=== PATIENT | male | born 1995 | race Caucasian/White ===

== ENCOUNTER 2017-01-29 10:37 | Inpatient (IN) | payer OTHER ==
--- NOTE | 2017-01-29 10:54 | ED ---
Medical Clearance HPI - General Stated complaint: mental health Time Seen by Provider: 01/29/17 10:40 Source: RN notes reviewed - History of Present Illness Initial comments: 21-year-old male who presents emergency Department complaining of feeling as always been more manic. Patient states that difficulty sleeping and had racing thoughts . Patient denies any suicidal or homicidal ideations. Patient states she was diagnosed with bipolar in the past but never took any medications for because he didn't get around to getting them. Patient denies any physical complaints. Patient denies any chest pain difficulty breathing shortness of breath. Patient denies any abdominal pain patient denies nausea vomiting diarrhea. Patient denies any recent fever or chills per patient denies headache. Home medications: Home Medications Medication Instructions Recorded Confirmed No Known Home Medications [No 01/29/17 01/29/17 Known Home Medications] Allergies/Adverse reactions: Allergies Allergy/AdvReac Type Severity Reaction Status Date / Time No Known Allergies Allergy Verified 01/29/17 12:12 Review of Systems ROS Statement: Those systems with pertinent positive or pertinent negative responses have been documented in the HPI. ROS Other: All systems not noted in ROS Statement are negative. General Exam - General Exam Comments Initial Comments: GENERAL: Patient is well-developed and well-nourished. Patient is nontoxic and well- hydrated and is in no acute distress. ENT: Neck is soft and supple. No significant lymphadenopathy is noted. EYES: The sclera were anicteric and conjunctiva were pink and moist. Extraocular movements were intact and pupils were equal round and reactive to light. Eyelids were unremarkable. PULMONARY: Unlabored respirations. Good breath sounds bilaterally. No audible rales rhonchi or wheezing was noted. CARDIOVASCULAR: There is a regular rate and rhythm without any murmurs gallops or rubs. ABDOMEN: Soft and nontender with normal bowel sounds. SKIN: Skin is clear with no lesions or rashes and otherwise unremarkable. NEUROLOGIC: Patient is alert and oriented x3. Cranial nerves II through XII are grossly intact. Motor and sensory are also intact. Normal speech, volume and content. Symmetrical smile. MUSCULOSKELETAL: Normal extremities with adequate strength and full range of motion. No lower extremity swelling or edema. No calf tenderness. PSYCHIATRIC: Patient states he has racing thoughts and some mild paranoia occasionally especially when he hasn't slept for a while. Patient states he has had quite a bit of difficulty sleeping lately. Course Vital Signs 01/29/17 01/29/17 10:50 12:14 Temperature 97.9 F 98.9 F Pulse Rate 119 H 98 Respiratory 20 20 Rate Blood Pressure 157/71 149/85 O2 Sat by Pulse 96 96 Oximetry Medical Decision Making - Medical Decision Making When the parents showed up they were indicating to us that the patient was extremely paranoid even to the degree that he was afraid of drinking any water because he thought it might harm him. Patient eventually admitted to this. Parents filled out a petition on the patient and I filled out a clinical certification for the patient needed to be transferred to a psychiatric facility - Lab Data Result diagrams: 01/29/17 12:30 01/29/17 12:30 Lab Results 01/29/17 01/29/17 Range/Units 12:30 12:30 WBC 8.0 (3.8-10.6) k/uL RBC 5.18 (4.30-5.90) m/uL Hgb 16.1 (13.0-17.5) gm/dL Hct 46.7 (39.0-53.0) % MCV 90.1 (80.0-100.0) fL MCH 31.0 (25.0-35.0) pg MCHC 34.4 (31.0-37.0) g/dL RDW 12.9 (11.5-15.5) % Plt Count 217 (150-450) k/uL Neutrophils % 67 % Lymphocytes % 22 % Monocytes % 8 % Eosinophils % 0 % Basophils % 1 % Neutrophils # 5.4 (1.3-7.7) k/uL Lymphocytes # 1.8 (1.0-4.8) k/uL Monocytes # 0.7 (0-1.0) k/uL Eosinophils # 0.0 (0-0.7) k/uL Basophils # 0.1 (0-0.2) k/uL Sodium 141 (137-145) mmol/L Potassium 3.5 (3.5-5.1) mmol/L Chloride 106 (98-107) mmol/L Carbon Dioxide 24 (22-30) mmol/L Anion Gap 11 mmol/L BUN 8 L (9-20) mg/dL Creatinine 0.80 (0.66-1.25) mg/dL Est GFR (MDRD) Af Amer >60 (>60 ml/min/1.73 sqM) Est GFR (MDRD) Non-Af >60 (>60 ml/min/1.73 sqM) Glucose 94 (74-99) mg/dL Calcium 10.2 (8.4-10.2) mg/dL Total Bilirubin 0.9 (0.2-1.3) mg/dL AST 29 (17-59) U/L ALT 35 (21-72) U/L Alkaline Phosphatase 45 (38-126) U/L Total Protein 7.8 (6.3-8.2) g/dL Albumin 4.9 (3.5-5.0) g/dL Disposition Clinical Impression: Psychosis Disposition: TRANSFER TO PSYCH HOSP/UNIT Time of Disposition: 14:27
[2017-01-29 12:47] LABS: Basophils # (A) 0.1 k/uL (0-0.2); Basophils % (A) 1 %; CH 31.7; CHCM 35.4; Eosinophils % (A) 0 %; HCT 46.7 % (39.0-53.0); HDW 2.51; HGB 16.1 gm/dL (13.0-17.5); Luc % (Auto) 1; Lymphocytes # (A) 1.8 k/uL (1.0-4.8); Lymphocytes % (A) 22 %; MCHC 34.4 g/dL (31.0-37.0); MCV 90.1 fL (80.0-100.0); Mean Platelet Volume 7.4; Monocytes # (A) 0.7 k/uL (0-1.0); Monocytes % (A) 8 %; Neutrophils # (A) 5.4 k/uL (1.3-7.7); Neutrophils % (A) 67 %; RBC 5.18 m/uL (4.30-5.90); RDW 12.9 % (11.5-15.5); WBC (Perox) 7.75
[2017-01-29 12:53] LABS: ALT 35 U/L (21-72); AST 29 U/L (17-59); Alkaline Phosphatase 45 U/L (38-126); Anion Gap 11 mmol/L; Blood Urea Nitrogen 8 mg/dL (9-20); Calcium 10.2 mg/dL (8.4-10.2); Carbon Dioxide 24 mmol/L (22-30); Chloride 106 mmol/L (98-107); Glucose 94 mg/dL (74-99); Non-African American GFR(MDRD) >60 (>60 ml/min/1.73 sqM); Potassium 3.5 mmol/L (3.5-5.1); Sodium 141 mmol/L (137-145); Total Bilirubin 0.9 mg/dL (0.2-1.3); Total Protein 7.8 g/dL (6.3-8.2)
[2017-01-29] MEDS ORDERED: MAG HYDROX/AL HYDROX/SIMETH 30 ML CUP PO PRN (18:24)
[2017-01-29] MEDS ORDERED: ACETAMINOPHEN TAB 325 MG TAB PO PRN (18:24)
[2017-01-29] MEDS ORDERED: MAGNESIUM HYDROXIDE 2,400 MG/10 ML CUP PO PRN (18:24)
[2017-01-29] MEDS ORDERED: ZIPRASIDONE 20 MG VIAL IM PRN (18:24)
[2017-01-29] MEDS ORDERED: LORazepam 2 MG/ML SYRINGE IM PRN (18:27)
[2017-01-29 18:40] LABS: Appearance,Urine Cloudy (Clear); Bacteria,Urine Rare /hpf; Bilirubin,Urine Negative (Negative); Calcium Oxalate Crystals,Urine Moderate /hpf; Glucose,Urine (UA) Negative (Negative); Ketones,Urine 2+ (Negative); Leukocyte Esterase,Urine Negative (Negative); Mucus,Urine Many /hpf; Nitrite,Urine Negative (Negative); Particle Count 14715; Protein,Urine 1+ (Negative); RBC,Urine 6 /hpf (0-5); Specific Gravity,Urine 1.028 (1.001-1.035); Squamous Epithelial Cell,Urine <1 /hpf (0-4); UA Billing (MACRO vs. MICRO) MICRO; WBC,Urine 1 /hpf (0-5)
[2017-01-29] MEDS: LORazepam 1 MG TAB PO PRN (19:11)
[2017-01-30] MEDS: LORazepam 1 MG TAB PO PRN (08:26)
--- NOTE | 2017-01-30 13:44 | P.HP ---
Psychiatric H&P - . H&P Date: 01/30/17 History & Physical: IDENTIFYING DATA: 21 year old single male HPI: Pt reports he smokes cannabis and about 2 weeks ago he began to become fearful of eating or drinking, thinking that people were looking at him, had other conspiracy type thoughts. Not sleeping for about a week. Continue to smoke cannabis until 2 weeks ago. Family brought [facility] and petitioned him, the first cert completed in ER. Once on the floor he signed a AVF. He reports he is feeling much better now, thinks that the cannabis was laced with crystal meth, since his UDS was postive, and he denies any use of methamphetamines. He states he bought this at the dispensary. He states he is eating and drinking normally, sleep is good. PAST PSYCHIATRIC HISTORY: Saw a psychiatrist 3 years ago and was diagnosed with bipolar,, outpatient. Says he tried to get medication but could not, and then thought since his symptoms were diminished he no longer needed medication. Never hospitalized Denies suicidal attempts. +suicidal ideation as a youngster. PMH:denies ALLERGIES: no known ALLERGIES MEDICATIONS: none until here and receiving ativan CHEMICAL DEPENDENCY HISTORY: cannabis, etoh occasional FAMILY PSYCHIATRIC HISTORY: Father has Bipolar, DO. Denies family history of suicide FAMILY CHEMICAL DEPENDENCY HISTORY: Father has substance use, etoh SOCIAL HISTORY: Engaged, lives by himself, he works odd jobs, [employer]. MENTAL STATUS EXAM: The patient presents alert, pleasant, and cooperative. Calmly seated without any agitated behavior. He reports that his mood is good. Affect is constricted. Patient denies having any suicidal or homicidal ideation intent or plan. Denies auditory or visual hallucinations. There is no evidence of any delusional thought content. His thought process is linear and goal-directed. speech is fluent and nonpressured. memory and concentration is grossly intact for the purposes of this session. ] STRENGTHS/WEAKNESSES: intelligent/poor insight INTELLECTUAL FUNCTIONING: average IMPRESSIONS: [21-year-old single male engaged with a two-week history suggestive of froy and a past history of bipolar disorder being made 3 years ago but no medication. Patient believes that this was caused by a methamphetamine laced marijuana that he bought. He appears to be very self- controlled, with report of a good mood but constricted affect. He stopped smoking marijuana approximately 2 weeks ago that still when he came in he was still having the paranoia the delusions and he still had positive UDS, so unclear about the timeline. No clear psychosis or delusions today. No suicidal or homicidal ideation Bipolar Disorder, MRE, manic with psychosis Cannabis use, severe Methamphetamine use, mild PLAN: Discussed treatment options, explain the medication that he is on right now Ativan, is addicting and we really should not To his problem last. He is open to trying a medication for bipolar disorder. We discussed different medications, and although it is unclear that this episode of froy and psychosis was not due to the influence of stimulants and since he has a past episode where he was diagnosed with bipolar, we agreed that we would start Abilify 2.5mg today D/C Ativan Vistaril 25 mg when necessary 3 times a day for anxiety A family meeting should be arranged as soon as possible to gather more information and possible symptoms that she is unaware of. He also agreed to not smoke cannabis in the future Continue inpatient psychiatric hospitalization for safety, observation, and medication management. Allergies Allergy/AdvReac Type Severity Reaction Status Date / Time No Known Allergies Allergy Verified 01/29/17 12:12 Vital Signs Temp 98.1 F 01/30/17 06:52 Pulse 145 H 01/30/17 08:27 Resp 16 01/30/17 08:27 BP 144/83 01/30/17 08:27 Pulse Ox 99 01/29/17 18:24 Laboratory Last Values WBC 8.0 k/uL (3.8-10.6) 01/29/17 12:30 RBC 5.18 m/uL (4.30-5.90) 01/29/17 12:30 Hgb 16.1 gm/dL (13.0-17.5) 01/29/17 12:30 Hct 46.7 % (39.0-53.0) 01/29/17 12:30 MCV 90.1 fL (80.0-100.0) 01/29/17 12:30 MCH 31.0 pg (25.0-35.0) 01/29/17 12:30 MCHC 34.4 g/dL (31.0-37.0) 01/29/17 12:30 RDW 12.9 % (11.5-15.5) 01/29/17 12:30 Plt Count 217 k/uL (150-450) 01/29/17 12:30 Neutrophils % 67 % 01/29/17 12:30 Lymphocytes % 22 % 01/29/17 12:30 Monocytes % 8 % 01/29/17 12:30 Eosinophils % 0 % 01/29/17 12:30 Basophils % 1 % 01/29/17 12:30 Neutrophils # 5.4 k/uL (1.3-7.7) 01/29/17 12:30 Lymphocytes # 1.8 k/uL (1.0-4.8) 01/29/17 12:30 Monocytes # 0.7 k/uL (0-1.0) 01/29/17 12:30 Eosinophils # 0.0 k/uL (0-0.7) 01/29/17 12:30 Basophils # 0.1 k/uL (0-0.2) 01/29/17 12:30 Sodium 141 mmol/L (137-145) 01/29/17 12:30 Potassium 3.5 mmol/L (3.5-5.1) 01/29/17 12:30 Chloride 106 mmol/L (98-107) 01/29/17 12:30 Carbon Dioxide 24 mmol/L (22-30) 01/29/17 12:30 Anion Gap 11 mmol/L 01/29/17 12:30 BUN 8 mg/dL (9-20) L 01/29/17 12:30 Creatinine 0.80 mg/dL (0.66-1.25) 01/29/17 12:30 Est GFR (MDRD) Af Amer >60 (>60 ml/min/1.73 sqM) 01/29/17 12:30 Est GFR (MDRD) Non-Af >60 (>60 ml/min/1.73 sqM) 01/29/17 12:30 Glucose 94 mg/dL (74-99) 01/29/17 12:30 Calcium 10.2 mg/dL (8.4-10.2) 01/29/17 12:30 Total Bilirubin 0.9 mg/dL (0.2-1.3) 01/29/17 12:30 AST 29 U/L (17-59) 01/29/17 12:30 ALT 35 U/L (21-72) 01/29/17 12:30 Alkaline Phosphatase 45 U/L (38-126) 01/29/17 12:30 Total Protein 7.8 g/dL (6.3-8.2) 01/29/17 12:30 Albumin 4.9 g/dL (3.5-5.0) 01/29/17 12:30 TSH 1.010 mIU/L (0.465-4.680) 01/29/17 12:34 Urine Color Yellow 01/29/17 14:40 Urine Appearance Cloudy (Clear) 01/29/17 14:40 Urine pH 6.0 (5.0-8.0) 01/29/17 14:40 Ur Specific [place] 1.028 (1.001-1.035) 01/29/17 14:40 Urine Protein 1+ (Negative) H 01/29/17 14:40 Urine Glucose (UA) Negative (Negative) 01/29/17 14:40 Urine Ketones 2+ (Negative) H 01/29/17 14:40 Urine Blood Negative (Negative) 01/29/17 14:40 Urine Nitrite Negative (Negative) 01/29/17 14:40 Urine Bilirubin Negative (Negative) 01/29/17 14:40 Urine Urobilinogen 2.0 mg/dL (<2.0) 01/29/17 14:40 Ur Leukocyte Esterase Negative (Negative) 01/29/17 14:40 Urine RBC 6 /hpf (0-5) H 01/29/17 14:40 Urine WBC 1 /hpf (0-5) 01/29/17 14:40 Ur Squamous Epith Cells <1 /hpf (0-4) 01/29/17 14:40 Calcium Oxalate Crystal Moderate /hpf (None) H 01/29/17 14:40 Urine Bacteria Rare /hpf (None) H 01/29/17 14:40 Hyaline Casts 15 /lpf (0-2) H 01/29/17 14:40 Urine Mucus Many /hpf (None) H 01/29/17 14:40 Urine Opiates Screen Not Detected (NotDetected) 01/29/17 14:10 Ur Oxycodone Screen Not Detected (NotDetected) 01/29/17 14:10 Urine Methadone Screen Not Detected (NotDetected) 01/29/17 14:10 Ur Propoxyphene Screen Not Detected (NotDetected) 01/29/17 14:10 Ur Barbiturates Screen Not Detected (NotDetected) 01/29/17 14:10 U Tricyclic Antidepress Not Detected (NotDetected) 01/29/17 14:10 Ur Phencyclidine Scrn Not Detected (NotDetected) 01/29/17 14:10 Ur Amphetamines Screen Not Detected (NotDetected) 01/29/17 14:10 U Methamphetamines Scrn Detected (NotDetected) H 01/29/17 14:10 U Benzodiazepines Scrn Not Detected (NotDetected) 01/29/17 14:10 Urine Cocaine Screen Not Detected (NotDetected) 01/29/17 14:10 U Marijuana (THC) Screen Detected (NotDetected) H 01/29/17 14:10 01/30/17 12:44 01/30/17 13:14 01/30/17 13:44
--- NOTE | 2017-01-30 14:25 | P.CONS ---
History of Present Illness - Reason for Consult Consult date: 01/30/17 Medical management - History of Present Illness This is a 21-year-old male with no primary care physician. He has a past medical history of bipolar disorder, tobacco use and dependence, marijuana use. Patient states that he has been extremely anxious, unable to sleep and recently used marijuana couple weeks ago but stopped using. He states his anxiety just continued to worsen and he came back to [facility] to be with his family as he thought this might help him. They were concerned and scared regarding his behavior. He states he has had extreme behavior with bipolar but it was never like this. Patient came into [facility] emergency center. Urine drug screen was positive for methamphetamines and marijuana. Patient states he has never taken any methamphetamines. Urinalysis showed moderate calcium oxalate crystals. Patient states that he quit smoking cigarettes a couple weeks ago. Review of Systems All systems: negative Constitutional: Denies chills, Denies fever Eyes: denies blurred vision, denies pain Ears, nose, mouth and throat: Denies headache, Denies sore throat Cardiovascular: Denies chest pain, Denies shortness of breath Respiratory: Denies cough Gastrointestinal: Denies abdominal pain, Denies diarrhea, Denies nausea, Denies vomiting Musculoskeletal: Denies myalgias Integumentary: Denies pruritus, Denies rash Neurological: Denies numbness, Denies weakness Psychiatric: Reports anxiety, Reports anxiety attacks, Reports insomnia, Denies depression Endocrine: Denies fatigue, Denies weight change Past Medical History Past Medical History: No Reported History Past Surgical History: No Surgical Hx Reported Past Psychological History: Bipolar Smoking Status: Former smoker Past Alcohol Use History: None Reported Additional Past Alcohol Use History / Comment(s): Patient was a smoker of 4-5 cigarettes per day for 3 years and quit in December 2015. He has recently been smoking marijuana. He is single and does not have any children. Past Drug Use History: None Reported - Past Family History Father Additional Family Medical History / Comment(s): Father is alive at age 41 with history of bipolar disorder. Mother Additional Family Medical History / Comment(s): Mother is alive at age 43 with history of thyroid problems and endometriosis. Sister(s) Additional Family Medical History / Comment(s): He has 5 sisters and 1 brother with no major medical problems. Medications and Allergies Home Medications Medication Instructions Recorded Confirmed Type No Known Home Medications [No 01/29/17 01/29/17 History Known Home Medications] Allergies Allergy/AdvReac Type Severity Reaction Status Date / Time No Known Allergies Allergy Verified 01/29/17 12:12 Physical Exam Vitals: Vital Signs Temp Pulse Pulse Resp BP BP Pulse Ox 01/30/17 08:27 145 H 16 144/83 01/30/17 06:52 98.1 F 93 16 117/65 01/29/17 19:12 127 H 20 134/99 01/29/17 18:24 99.3 F 98 122 H 20 123/83 146/106 98 Gen: This is a 21-year-old male. He appears to be in no acute distress. He is cooperative. HEENT: Head is atraumatic, normocephalic. Pupils equal, round. Sclerae is anicteric. NECK: Supple. No JVD. No lymphadenopathy. No thyromegaly. LUNGS: Clear to auscultation. No wheezes or rhonchi. No intercostal retractions. HEART: Regular rate and rhythm. No murmur. ABDOMEN: Soft. Bowel sounds are present. No masses. No tenderness. EXTREMITIES: No pedal edema. No calf tenderness. NEUROLOGICAL: Patient is awake, alert and oriented x3. Cranial nerves 2 through 12 are grossly intact. Results CBC & Chem 7: 01/29/17 12:30 01/29/17 12:30 Assessment and Plan Plan: 1. Anxiety with history of bipolar disorder. Patient admitted to the mental health unit. Continue current plan of care. 2. Calcium oxalate crystals and urinalysis. Repeat urinalysis ordered. 3. Marijuana use with urine drug screen positive for marijuana and methamphetamines. Continue as in #1. 4. Recent tobacco use, quit several weeks ago. No need for nicotine patch. Impression and plan of care have been directed as dictated by the signing physician. Idalia Bassett nurse practitioner acting as scribe for signing physician. Time with Patient: Greater than 30
[2017-01-30] MEDS: ARIPiprazole 5 MG TAB PO SCH (14:52)
[2017-01-30 15:22] VITALS: BMI 19.5
[2017-01-31 06:40] VITALS: TEMP 97.6
[2017-01-31] MEDS: ARIPiprazole 5 MG TAB PO SCH (10:12)
[2017-01-31 10:21] LABS: Appearance,Urine Clear (Clear); Bilirubin,Urine Negative (Negative); Glucose,Urine (UA) Negative (Negative); Ketones,Urine Negative (Negative); Leukocyte Esterase,Urine Negative (Negative); Nitrite,Urine Negative (Negative); PH, Urine 6.5 (5.0-8.0); Protein,Urine Negative (Negative); Specific Gravity,Urine 1.005 (1.001-1.035); UA Billing (MACRO vs. MICRO) CHEM; Urobilinogen,Urine <2.0 mg/dL (<2.0)
--- NOTE | 2017-01-31 10:56 | P.PN ---
Progress Note - Text INTERVERAL HISTORY:Patient with history of psychosis, possible froy, reports he continues to feel better, sleeping well, no longer having thoughts of being watched, poisoned or other odd thoughts. States he feels safe here. Asks about family meeting and discharge. Feels he is doing well and could go home soon. Denies any thoughts of self harm, thoughts of harming others. MENTAL STATUS EXAM:Patient alert and oriented 3, good eye contact, fair groomed in street clothing. Speech normal volume, rate and production. Coherent, logical and goal directed thought process. No IAIN, no FOI. No TB/TW/ TI Denied auditory and visual hallucinations. Denied paranoid ideation, delusions or IOR. Memory grossly intact Cognition average Mood euthymic, affect full range decreased intensity, congruent with mood. Denies suicidal ideation, denies homicidal ideation. Insight partial; Judgment plan intact for treatment purposes PLAN: Continue Abilify 2.5 mg daily. We'll discuss in team meeting with social media strategist family meeting, with discharge possibly tomorrow. Abnormal involuntary movement scale is negative.
[2017-02-01 06:52] VITALS: BP 119/59; PULSE 82; RESP 18
[2017-02-01] MEDS: ARIPiprazole 5 MG TAB PO SCH (09:27)
--- NOTE | 2017-02-01 10:01 | P.DS ---
Providers Date of admission: 01/29/17 18:12 Expected date of discharge: 02/01/17 Attending physician: Maday Lopes MD Consults: 01/29/17 18:24 Consult Physician Routine Consulting Provider: Forrest Pizarro Reason/Comments: Follow up H & P Do you want consulting provider notified?: Yes Primary care physician: Stated None - Discharge Diagnosis(es) (1) Psychosis Current Visit: Yes Status: Acute Hospital Course: Patient had several weeks not sleeping becoming fearful of eating or drinking, thinking that people were watching him following him. Eventually family brought him in on a petition and he agreed to sign in and was allowed to do so. Patient has a past history of bipolar disorder diagnosed in the private sector and was seen approximately 2-3 years ago but no symptoms in the interim. This episode appeared to be a manic episode with psychosis. Once on the unit he began to clear, was able to sleep with medication. And began to have resolution of the paranoia. His urine drug screen was positive for cannabis and methamphetamine, patient admits to using marijuana and the possibility of course is that the marijuana was laced with methamphetamines. He denies using methamphetamines. Within 48 hours patient was calm no psychosis no delusions. However Abilify was started due to the past history of a diagnosis of bipolar, he agreed to continue taking it. He also agreed to take it at least for 30 days after discharge. He has been set up with a counseling center closest to his home. Patient alert and oriented 3, good eye contact, well groomed in street clothing. Speech normal volume, rate and production. Coherent, logical and goal directed thought process. No IAIN, no FOI. No TB/TW/ TI Denied auditory and visual hallucinations. Denied paranoid ideation, delusions or IOR. Memory intact Cognition average Mood euthymic, affect full range normal intensity, congruent with mood. Denies suicidal ideation, denies homicidal ideation. Insight partial; Judgement grossly intact for treatment purposes A:Substance induced Psychosis, R/O Bipolar MRE manic with psychosis Safe for discharge Pertinent Studies: none Procedures: none Patient Condition at Discharge: Good Plan - Discharge Summary New Discharge Prescriptions: ARIPiprazole [Abilify] 2.5 mg PO DAILY #30 tab Discharge Medication List ARIPiprazole [Abilify] 2.5 mg PO DAILY #30 tab 02/01/17 [Rx] Follow up Appointment(s)/Referral(s): [facility] [Other] - 02/06/17 9:30 am (Jhonatan Dong) None,Stated [Primary Care Provider] - 1-2 days Patient Instructions/Handouts: Brief Psychotic Disorder (DC) Activity/Diet/Wound Care/Special Instructions: No alcohol or street drugs, activity as tolerated, diet as tolerated, remove firearms from home. Follow up with outpatient provider as set up at time of discharge, follow up with PCP in 1-2days. Call crisis line or [phone] if having thoughts of hurting himself or anyone else. Discharge Disposition: HOME SELF-CARE
== END 2017-02-01 09:31 | disposition home or self-care (01) | DRG 897 ==
LOC: EC 10:37 → 3MHU 18:12
PROVIDERS: ADMIT Psychiatry & Neurology Addiction Medicine; ATTEND Psychiatry & Neurology Addiction Medicine
DX: F19.959 Other psychoactive substance use, unspecified with psychoactive substance-induced psychotic disorder, unspecified (principal); F31.2 Bipolar disorder, current episode manic severe with psychotic features; F41.9 Anxiety disorder, unspecified; F12.90 Cannabis use, unspecified, uncomplicated; F15.90 Other stimulant use, unspecified, uncomplicated; Z87.891 Personal history of nicotine dependence; Z81.8 Family history of other mental and behavioral disorders
CPT/HCPCS: 36415; 80053; 80306; 81001; 81003; 82075; 84443; 85025; 99285